=== PATIENT | male | born 1950 | race African-American/Black ===

== ENCOUNTER 2019-11-30 12:41 | Inpatient (IN) | payer MEDICARE, MEDICAID ==
[~2019-11-30] VITALS: Ht 177.8 cm; Wt 60.8 kg
[~2019-11-30 12:41] MED LIST: CARI250T PO; ENAL10TA71 PO; HYDR-3280 PO; METH10OR11 PO
[2019-11-30] MEDS ORDERED: SODIUM CHLORIDE 0.9% 1,000 ML IV ONE (13:42)
[2019-11-30 14:16] LABS: BASOPHILS % 0.3 % (0.0-2.0); EOSINOPHILS % 0.4 % (0.0-5.0); HEMOGLOBIN. 9.6 g/dL (14.0-18.0); LYMPHOCYTES % 18.7 % (20.0-50.0); MEAN CORPUSCULAR HEMOGLOBIN 30.8 pg (28.0-32.0); MEAN CORPUSCULAR VOLUME 93.1 fL (80.0-94.0); MEAN PLATELET VOLUME 8.3 fl (7.4-10.4); MONOCYTES % 7.4 % (2.0-8.0); NEUTROPHILS % 73.2 % (40.0-76.0); PLATELET 269 x1000/uL (130-400); RED BLOOD CELL COUNT 3.11 mill/uL (4.7-6.1)
[2019-11-30 14:22] LABS: CHLORIDE 105 mEq/L (98-107)
[2019-11-30 14:26] LABS: ETHANOL BLOOD < 10 mg/dL
[2019-11-30 14:30] LABS: CLARITY URINE CLEAR (CLEAR); COLOR URINE DARK YELLOW (YELLOW); KETONES URINE TRACE (NEGATIVE); LEUKOCYTE ESTERASE URINE NEGATIVE (NEGATIVE); NITRITE URINE NEGATIVE (NEGATIVE); OCCULT BLOOD URINE NEGATIVE (NEGATIVE); PH URINE 5.5 (4.5-8.0); PROTEIN URINE 1+ (NEGATIVE); SPECIFIC GRAVITY URINE 1.031 (1.005-1.030)
[2019-11-30] MEDS ORDERED: LORAZEPAM 2MG/ML CPJ IV ONE ×2 (14:30→14:45)
[2019-11-30 14:31] LABS: INR 1.1; PARTIAL THROMBOPLASTIN TIME 35.7 sec (23.4-31.0); PROTHROMBIN TIME 11.2 sec (9.6-11.0)
[2019-11-30] MEDS ORDERED: HALOPERIDOL LACTATE 5MG/ML VIAL IM ONE (14:45)
[2019-11-30 14:46] LABS: *AMPHETAMINES SCREEN URINE NEGATIVE (NEGATIVE); *BARBITURATES SCREEN URINE NEGATIVE (NEGATIVE)
[2019-11-30 14:47] LABS: *BENZODIAZEPINES SCREEN URINE NEGATIVE (NEGATIVE); *COCAINE SCREEN URINE NEGATIVE (NEGATIVE); METHADONE URINE SCREEN PRESUMTIVE POSITIVE (NEGATIVE); OPIATES URINE SCREEN NEGATIVE (NEGATIVE); PHENCYCLIDINE URINE SCREEN NEGATIVE (NEGATIVE)
[2019-11-30 14:48] LABS: CANNABINOID URINE SCREEN PRESUMTIVE POSITIVE (NEGATIVE)
[2019-11-30] MEDS ORDERED: ASPIRIN 300MG SUPP PR ONE (16:30)
[2019-11-30] MEDS ORDERED: DOCUSATE SODIUM 100MG CAPSULE PO PRN (17:00)
[2019-11-30] MEDS ORDERED: ACETAMINOPHEN 650MG/20.3ML UDC GT PRN ×2 (17:00)
[2019-11-30] MEDS ORDERED: CLONIDINE 0.1MG TABLET PO PRN (17:00)
[2019-11-30] MEDS ORDERED: ACETAMINOPHEN 650MG SUPP PR PRN ×2 (17:00)
[2019-11-30] MEDS ORDERED: ACETAMINOPHEN 325MG TABLET PO PRN ×2 (17:00)
[2019-11-30] MEDS ORDERED: HYDRALAZINE 20MG/ML VIAL IV PRN (17:00)
[2019-11-30] MEDS ORDERED: GUAIFENESIN 200MG/10ML SUGAR FREE UDC PO PRN (17:00)
[2019-11-30] MEDS ORDERED: ONDANSETRON HCL 4MG/2ML INJ IV PRN (17:00)
[2019-11-30 17:42] VITALS: BP 124/77
[2019-11-30] MEDS: INSULIN LISPRO 100 UNITS/ML SUBCUT SCH ×2 (17:50→21:00)
[2019-11-30] MEDS: BLOOD SUGAR DIAGNOSTIC STRIP TEST SCH ×2 (17:53→21:00)
[2019-11-30 18:00] VITALS: BP 124/77
[2019-11-30] MEDS: DEXTROSE 50% WATER 50ML SYRINGE IV PRN ×2 (18:01→22:17)
[2019-11-30] MEDS: ENOXAPARIN 40MG/0.4ML SYR SUBCUT SCH (18:02)
[2019-11-30 20:00] VITALS: BP 164/83
[2019-12-01] VITALS: BP 135/66
[2019-12-01] MEDS: LORAZEPAM 2MG/ML CPJ IV PRN ×3 (00:29→14:53)
[2019-12-01 04:00] VITALS: BP 116/80
[2019-12-01] MEDS: BLOOD SUGAR DIAGNOSTIC STRIP TEST SCH ×4 (06:38→21:18)
[2019-12-01 06:42] LABS: BASOPHILS % 0.2 % (0.0-2.0); EOSINOPHILS % 0.1 % (0.0-5.0); HEMATOCRIT. 33.4 % (42.0-52.0); HEMOGLOBIN. 11.2 g/dL (14.0-18.0); LYMPHOCYTES % 12.9 % (20.0-50.0); MEAN CORPUSCULAR HEMOGLOBIN 31.4 pg (28.0-32.0); MEAN CORPUSCULAR VOLUME 93.7 fL (80.0-94.0); MEAN PLATELET VOLUME 8.7 fl (7.4-10.4); NEUTROPHILS % 79.8 % (40.0-76.0); PLATELET 269 x1000/uL (130-400); RED BLOOD CELL COUNT 3.56 mill/uL (4.7-6.1)
[2019-12-01 06:47] LABS: CHLORIDE 101 mEq/L (98-107)
[2019-12-01 06:58] LABS: LDL CHOLESTEROL 79 mg/dL (5-100)
[2019-12-01 06:59] LABS: HDL CHOLESTEROL 46 mg/dL (40-59)
[2019-12-01] MEDS: INSULIN LISPRO 100 UNITS/ML SUBCUT SCH ×4 (07:25→21:00)
[2019-12-01 11:50] VITALS: BP 160/91
[2019-12-01] MEDS ORDERED: HYDROCODONE/ACETAMINOPHEN 5/325MG TABLET PO SCH (14:00)
[2019-12-01] MEDS ORDERED: METHADONE HCL 10MG TABLET PO NR (15:15)
[2019-12-01 16:00] VITALS: BP 149/88
[2019-12-01] MEDS: ENOXAPARIN 40MG/0.4ML SYR SUBCUT SCH (18:01)
[2019-12-01 20:00] VITALS: BP 140/97
[2019-12-02] VITALS: BP 129/81
[2019-12-02 04:00] VITALS: BP 138/85
[2019-12-02] MEDS: LORAZEPAM 2MG/ML CPJ IV PRN (04:57)
[2019-12-02] MEDS: INSULIN LISPRO 100 UNITS/ML SUBCUT SCH ×4 (06:56→20:40)
[2019-12-02] MEDS: BLOOD SUGAR DIAGNOSTIC STRIP TEST SCH ×4 (06:56→20:40)
[2019-12-02 08:00] VITALS: BP 141/78
[2019-12-02] MEDS ORDERED: METHADONE HCL 10MG TABLET PO SCH (09:00)
[2019-12-02 09:30] LABS: VITAMIN B12 SERUM 540 pg/mL (211-911)
[2019-12-02 12:00] VITALS: BP 115/62
[2019-12-02 16:00] VITALS: BP 145/75
[2019-12-02] MEDS: ENOXAPARIN 40MG/0.4ML SYR SUBCUT SCH (17:55)
[2019-12-02 20:00] VITALS: BP 154/82
[2019-12-03] VITALS (7 sets, daily range): BP systolic 111–133; BP diastolic 61–88
[2019-12-03] MEDS: LORAZEPAM 2MG/ML CPJ IV PRN ×2 (01:30→14:43)
[2019-12-03] MEDS: BLOOD SUGAR DIAGNOSTIC STRIP TEST SCH ×4 (06:46→21:20)
[2019-12-03] MEDS: INSULIN LISPRO 100 UNITS/ML SUBCUT SCH ×4 (07:40→21:00)
[2019-12-03] MEDS ORDERED: SODIUM BICARBONATE 4% (2.4MEQ) 5ML VIAL IV ONE ×2 (12:40→14:43)
[2019-12-03] MEDS ORDERED: LIDOCAINE HCL 1% 20ML VIAL (Pyxis) INJ ONE ×2 (12:40→14:43)
[2019-12-03 13:26] LABS: BASOPHILS % 0.5 % (0.0-2.0); HEMOGLOBIN. 10.2 g/dL (14.0-18.0); LYMPHOCYTES % 10.6 % (20.0-50.0); MEAN CORPUSCULAR HEMOGLOBIN 30.7 pg (28.0-32.0); MEAN CORPUSCULAR VOLUME 93.5 fL (80.0-94.0); MONOCYTES % 7.5 % (2.0-8.0); NEUTROPHILS % 81.4 % (40.0-76.0); PLATELET 218 x1000/uL (130-400); RED BLOOD CELL COUNT 3.32 mill/uL (4.7-6.1); RED CELL DISTRIBUTION WIDTH 14.2 % (11.6-14.6)
[2019-12-03 13:28] LABS: CHLORIDE 104 mEq/L (98-107)
[2019-12-03] MEDS ORDERED: MORPHINE SULFATE 2 MG/ML CPJ (NOT FOR IM USE) IV ONE ×2 (14:00→14:30)
[2019-12-03] MEDS ORDERED: LORAZEPAM 2MG/ML CPJ IV PRN ×2 (14:15→20:00)
[2019-12-03] MEDS ORDERED: MORPHINE SULFATE 2 MG/ML CPJ (NOT FOR IM USE) IV NR (14:15)
[2019-12-03] MEDS ORDERED: LORAZEPAM 2MG/ML CPJ IM PRN (14:15)
[2019-12-03] MEDS: METHADONE HCL 10MG TABLET PO SCH (16:36)
[2019-12-03] MEDS: ENOXAPARIN 40MG/0.4ML SYR SUBCUT SCH (16:38)
[2019-12-03] MEDS ORDERED: PHENYTOIN SODIUM EXTENDED 100MG CAPSULE PO SCH (22:00)
[2019-12-04 04:00] VITALS: BP 146/85
[2019-12-04] MEDS: BLOOD SUGAR DIAGNOSTIC STRIP TEST SCH ×4 (06:30→20:47)
[2019-12-04] MEDS: INSULIN LISPRO 100 UNITS/ML SUBCUT SCH ×4 (07:50→20:48)
[2019-12-04 08:00] VITALS: BP 129/80
[2019-12-04] MEDS ORDERED: METHADONE HCL 10MG TABLET PO SCH ×2 (09:00)
[2019-12-04] MEDS: METHADONE HCL 10MG TABLET PO SCH (09:04)
[2019-12-04 12:00] VITALS: BP 148/90
[2019-12-04 16:00] VITALS: BP 135/82
[2019-12-04] MEDS: ENOXAPARIN 40MG/0.4ML SYR SUBCUT SCH (17:49)
[2019-12-04 20:52] VITALS: BP 170/94
[2019-12-04 21:10] VITALS: BP 156/85
[2019-12-05 00:42] VITALS: BP 149/90
[2019-12-05] MEDS: LORAZEPAM 2MG/ML CPJ IV PRN (01:01)
[2019-12-05 04:00] VITALS: BP 137/74
[2019-12-05 05:12] VITALS: BP 137/74
[2019-12-05] MEDS: BLOOD SUGAR DIAGNOSTIC STRIP TEST SCH ×4 (06:27→20:59)
[2019-12-05 06:28] LABS: CHLORIDE 105 mEq/L (98-107)
[2019-12-05 06:31] LABS: BASOPHILS % 0.2 % (0.0-2.0); HEMATOCRIT. 33.2 % (42.0-52.0); MEAN CORPUSCULAR HEMOGLOBIN 31.1 pg (28.0-32.0); MEAN CORPUSCULAR VOLUME 94.2 fL (80.0-94.0); MONOCYTES % 8.6 % (2.0-8.0); NEUTROPHILS % 80.2 % (40.0-76.0); PLATELET 213 x1000/uL (130-400); RED BLOOD CELL COUNT 3.53 mill/uL (4.7-6.1)
[2019-12-05] MEDS: INSULIN LISPRO 100 UNITS/ML SUBCUT SCH ×4 (07:13→20:59)
[2019-12-05 08:18] VITALS: BP 138/82
[2019-12-05] MEDS ORDERED: IODIXANOL 320MG/ML 100 ML BOTTLE IV ONE (10:27)
[2019-12-05] MEDS ORDERED: LIDOCAINE HCL 1% 20ML VIAL (Pyxis) INJ ONE (10:27)
[2019-12-05] MEDS ORDERED: MIDAZOLAM HCL 5 MG/5 ML VIAL ONE (11:46)
[2019-12-05] MEDS ORDERED: PROPOFOL 10MG/ML 100ML 100 ML IV ONE (11:51)
[2019-12-05] MEDS ORDERED: CEFAZOLIN SODIUM 1000MG/VIAL ONE (12:11)
[2019-12-05] MEDS ORDERED: HEPARIN 1000 UNITS/ML 10ML ONE (12:37)
[2019-12-05] MEDS ORDERED: ONDANSETRON HCL 4MG/2ML INJ IV PRN (12:45)
[2019-12-05] MEDS ORDERED: HYDROMORPHONE HCL/PF 2MG/ML CPJ IV PRN (12:45)
[2019-12-05] MEDS ORDERED: SODIUM CHLORIDE 0.9% 1,000 ML IV ONE (13:00)
[2019-12-05] MEDS: METHADONE HCL 10MG TABLET PO SCH (15:26)
[2019-12-05 16:30] VITALS: BP 162/88
[2019-12-05] MEDS: ENOXAPARIN 40MG/0.4ML SYR SUBCUT SCH (17:41)
[2019-12-05 20:00] VITALS: BP 146/82
[2019-12-06] VITALS (7 sets, daily range): BP systolic 128–153; BP diastolic 71–86
[2019-12-06] MEDS: INSULIN LISPRO 100 UNITS/ML SUBCUT SCH ×4 (07:32→20:43)
[2019-12-06] MEDS: BLOOD SUGAR DIAGNOSTIC STRIP TEST SCH ×4 (07:32→20:43)
[2019-12-06] MEDS: METHADONE HCL 10MG TABLET PO SCH (09:00)
[2019-12-06 14:53] LABS: BASOPHILS % 0.4 % (0.0-2.0); HEMATOCRIT. 31.5 % (42.0-52.0); HEMOGLOBIN. 10.4 g/dL (14.0-18.0); LYMPHOCYTES % 10.5 % (20.0-50.0); MEAN CORPUSCULAR HEMOGLOBIN 30.8 pg (28.0-32.0); MEAN CORPUSCULAR VOLUME 93.6 fL (80.0-94.0); MEAN PLATELET VOLUME 9.7 fl (7.4-10.4); MONOCYTES % 7.1 % (2.0-8.0); PLATELET 205 x1000/uL (130-400); RED BLOOD CELL COUNT 3.37 mill/uL (4.7-6.1); RED CELL DISTRIBUTION WIDTH 13.9 % (11.6-14.6)
[2019-12-06 14:58] LABS: CHLORIDE 107 mEq/L (98-107)
[2019-12-06 15:00] LABS: INR 1.1; PROTHROMBIN TIME 11.5 sec (9.6-11.0)
[2019-12-06] MEDS: ENOXAPARIN 40MG/0.4ML SYR SUBCUT SCH (17:35)
[2019-12-07] VITALS: BP 157/76
[2019-12-07] MEDS: LORAZEPAM 2MG/ML CPJ IV PRN ×2 (01:00→09:16)
[2019-12-07 04:00] VITALS: BP 128/72
[2019-12-07] MEDS: BLOOD SUGAR DIAGNOSTIC STRIP TEST SCH ×3 (06:32→17:52)
[2019-12-07] MEDS: INSULIN LISPRO 100 UNITS/ML SUBCUT SCH ×3 (07:27→17:50)
[2019-12-07 08:27] VITALS: BP 111/92
[2019-12-07] MEDS: METHADONE HCL 10MG TABLET PO SCH (09:18)
[2019-12-07 12:00] VITALS: BP 154/80
[2019-12-07 14:00] VITALS: BP 154/80
[2019-12-07 16:37] VITALS: BP 142/78
[2019-12-07] MEDS: ENOXAPARIN 40MG/0.4ML SYR SUBCUT SCH (17:30)
== END 2019-12-07 18:00 | DRG 299 ==
LOC: ER 13:41 → EDBEDREQTM 15:12 → 6WST 15:31 → EDBEDREQTM 15:33 → EDBEDREQ 15:33 → ENRESERV 16:30
PROVIDERS: ADMIT Family Medicine; ATTEND Family Medicine
PROC: B54MZZA Ultrasonography of Right Upper Extremity Veins, Guidance (ICD-10-PCS; 2019-12-04)
PROC: B41GYZZ Fluoroscopy of Left Lower Extremity Arteries using Other Contrast (ICD-10-PCS; principal; 2019-12-05)
DX: I70.202 Unspecified atherosclerosis of native arteries of extremities, left leg (principal); G93.41 Metabolic encephalopathy; L97.329 Non-pressure chronic ulcer of left ankle with unspecified severity; E44.0 Moderate protein-calorie malnutrition; Z68.1 Body mass index [BMI] 19.9 or less, adult; I77.1 Stricture of artery; Z86.73 Personal history of transient ischemic attack (TIA), and cerebral infarction without residual deficits; G40.909 Epilepsy, unspecified, not intractable, without status epilepticus; F11.90 Opioid use, unspecified, uncomplicated; I10 Essential (primary) hypertension; J44.9 Chronic obstructive pulmonary disease, unspecified; R62.7 Adult failure to thrive; D64.9 Anemia, unspecified; E11.51 Type 2 diabetes mellitus with diabetic peripheral angiopathy without gangrene; L85.3 Xerosis cutis; E11.621 Type 2 diabetes mellitus with foot ulcer; L97.529 Non-pressure chronic ulcer of other part of left foot with unspecified severity; F17.210 Nicotine dependence, cigarettes, uncomplicated; S90.912A Unspecified superficial injury of left ankle, initial encounter; X58.XXXA Exposure to other specified factors, initial encounter; Y93.89 Activity, other specified; Y92.89 Other specified places as the place of occurrence of the external cause; Y99.8 Other external cause status
CPT/HCPCS: 36246; 36415; 71045; 75710; 76937; 80053; 80061; 80305; 80320; 81003; 82607; 82962; 83036; 83880; 84443; 84484; 85025; 87635; 93005; 93923; 99285; C1760; C1769; C1893; C1894; J0690; J1630; J1644; J1650; J2060; J2250; J2704; J3490; J7030; Q9967; G0480

== ENCOUNTER 2019-12-16 11:13 | Inpatient (IN) | payer MEDICARE, MEDICAID ==
[~2019-12-16] VITALS: Ht 180.3 cm; Wt 49.9 kg
[~2019-12-16 11:13] MED LIST changes: -HYDR-3280 PO
[2019-12-16] MEDS ORDERED: ACETAMINOPHEN 325MG TABLET PO STA (12:08)
[2019-12-16] MEDS ORDERED: PIPERACILLIN/TAZ 3.375G PREMIX 50 ML IV ONE (12:15)
[2019-12-16] MEDS ORDERED: VANCOMYCIN 1 G PREMIX 200 ML IV ONE (12:15)
[2019-12-16] MEDS ORDERED: LORAZEPAM 2MG/ML CPJ IV ONE ×2 (12:45→18:15)
[2019-12-16 13:21] LABS: HEMOGLOBIN. 9.8 g/dL (14.0-18.0); MEAN CORPUSCULAR HEMOGLOBIN 30.4 pg (28.0-32.0); MEAN CORPUSCULAR VOLUME 92.7 fL (80.0-94.0); MEAN PLATELET VOLUME 9.1 fl (7.4-10.4); PLATELET 348 x1000/uL (130-400); RED BLOOD CELL COUNT 3.23 mill/uL (4.7-6.1); RED CELL DISTRIBUTION WIDTH 14.2 % (11.6-14.6)
[2019-12-16 13:28] LABS: CLARITY URINE CLEAR (CLEAR); COLOR URINE DARK YELLOW (YELLOW); KETONES URINE NEGATIVE (NEGATIVE); LEUKOCYTE ESTERASE URINE TRACE (NEGATIVE); NITRITE URINE NEGATIVE (NEGATIVE); OCCULT BLOOD URINE NEGATIVE (NEGATIVE); PH URINE 5.5 (4.5-8.0); PROTEIN URINE 1+ (NEGATIVE)
[2019-12-16 13:32] LABS: INR 1.1; PROTHROMBIN TIME 11.2 sec (9.6-11.0)
[2019-12-16 13:33] LABS: CHLORIDE 104 mEq/L (98-107)
[2019-12-16 13:55] LABS: PLATELET ESTIMATE NORMAL
[2019-12-16] MEDS: ENOXAPARIN 40MG/0.4ML SYR SUBCUT SCH (18:00)
[2019-12-16] MEDS ORDERED: NA PHOS,M-B/NA PHOS,DI-BA ENEMA 118ML PR PRN (18:15)
[2019-12-16] MEDS ORDERED: METHADONE HCL PO SCH (18:15)
[2019-12-16] MEDS ORDERED: ONDANSETRON HCL 4MG/2ML INJ IV PRN (18:15)
[2019-12-16] MEDS ORDERED: MAGNESIUM/ALUMINUM HYDROXIDE/SIMETHICONE 30ML UDC PO PRN (18:15)
[2019-12-16] MEDS ORDERED: CLONIDINE 0.1MG TABLET PO PRN (18:15)
[2019-12-16] MEDS ORDERED: DIPHENHYDRAMINE 50MG/ML VIAL IV PRN (18:15)
[2019-12-16] MEDS ORDERED: PIPERACILLIN/TAZ 3.375G PREMIX 50 ML IV SCH (18:30)
[2019-12-16 20:35] VITALS: BP 152/86
[2019-12-16] MEDS ORDERED: PIPERACILLIN/TAZOBACTAM 3.375 G/VIAL IV SCH (22:00)
[2019-12-16] MEDS: LORAZEPAM 2MG/ML CPJ IV PRN (22:22)
[2019-12-16] MEDS ORDERED: DOCU-150 MT (23:34)
[2019-12-16] MEDS ORDERED: MULT-1146 MT (23:35)
[2019-12-17] MEDS: HYDROCODONE/ACETAMINOPHEN 10/325MG TABLET PO PRN ×2 (00:26→23:42)
[2019-12-17] MEDS: PIPERACILLIN/TAZOBACTAM 3.375 G in DEXT 5% WATER 100 ML IV SCH ×3 (01:55→17:47)
[2019-12-17 03:31] VITALS: BP 148/80
[2019-12-17 04:00] VITALS: BP 148/91
[2019-12-17 08:00] VITALS: BP 152/86
[2019-12-17 08:56] LABS: CHLORIDE 107 mEq/L (98-107)
[2019-12-17 09:04] LABS: HEMATOCRIT. 31.4 % (42.0-52.0); HEMOGLOBIN. 10.4 g/dL (14.0-18.0); LDL CHOLESTEROL 46 mg/dL (5-100); MEAN CORPUSCULAR HEMOGLOBIN 30.8 pg (28.0-32.0); MEAN CORPUSCULAR VOLUME 92.7 fL (80.0-94.0); RED BLOOD CELL COUNT 3.38 mill/uL (4.7-6.1); RED CELL DISTRIBUTION WIDTH 14.3 % (11.6-14.6)
[2019-12-17 09:05] LABS: HDL CHOLESTEROL 24 mg/dL (40-59)
[2019-12-17] MEDS ORDERED: DEXTROSE 50% WATER 50ML SYRINGE IV PRN (10:00)
[2019-12-17 10:27] LABS: PLATELET 322 x1000/uL (130-400)
[2019-12-17 10:29] LABS: PLATELET ESTIMATE NORMAL
[2019-12-17] MEDS: METHADONE HCL 10MG TABLET PO SCH (11:00)
[2019-12-17] MEDS ORDERED: BACITRACIN 15GM TUBE TOP ONE (11:44)
[2019-12-17] MEDS ORDERED: HEPARIN 100 UNITS/1 ML VIAL ONE (11:44)
[2019-12-17] MEDS ORDERED: LIDOCAINE HCL 1% 20ML VIAL (Pyxis) INJ ONE (11:44)
[2019-12-17] MEDS ORDERED: THROMBIN (BOVINE) 5000 UNITS/VIAL TOP ONE (11:45)
[2019-12-17] MEDS ORDERED: BUPIVACAINE HCL/PF 0.5% (5MG/ML) 10ML ONE ×2 (11:45→11:46)
[2019-12-17] MEDS ORDERED: HEPARIN SODIUM 1,000 UNIT/1ML VIAL IV ONE ×2 (11:45→11:47)
[2019-12-17] MEDS ORDERED: BACITRACIN 50,000 UNITS/VIAL ONE (11:46)
[2019-12-17] MEDS: INSULIN LISPRO 100 UNITS/ML SUBCUT SCH ×3 (11:47→21:00)
[2019-12-17] MEDS: BLOOD SUGAR DIAGNOSTIC STRIP TEST SCH ×3 (11:47→21:00)
[2019-12-17] MEDS ORDERED: ONDANSETRON HCL 4MG/2ML INJ IV PRN (14:30)
[2019-12-17] MEDS ORDERED: MEPERIDINE HCL/PF 25MG/ML CPJ IV PRN (14:30)
[2019-12-17] MEDS ORDERED: ACETAMINOPHEN 650MG SUPP PR PRN (14:45)
[2019-12-17] MEDS ORDERED: MET5 PO (14:53)
[2019-12-17] MEDS: SODIUM HYPOCHLORITE (0.25%) 480ML SOLUTION (HALF STRENGTH) TOP SCH (15:00)
[2019-12-17] MEDS: LORAZEPAM 2MG/ML CPJ IV PRN ×2 (15:44→23:42)
[2019-12-17 16:00] VITALS: BP 159/90
[2019-12-17] MEDS: ENOXAPARIN 40MG/0.4ML SYR SUBCUT SCH (17:47)
[2019-12-17 20:00] VITALS: BP 158/80
[2019-12-18] VITALS: BP 139/81
[2019-12-18] MEDS: PIPERACILLIN/TAZOBACTAM 3.375 G in DEXT 5% WATER 100 ML IV SCH ×3 (02:54→17:07)
[2019-12-18] MEDS: LORAZEPAM 2MG/ML CPJ IV PRN ×3 (03:50→23:44)
[2019-12-18 04:00] VITALS: BP 123/67
[2019-12-18] MEDS: HYDROCODONE/ACETAMINOPHEN 10/325MG TABLET PO PRN ×4 (06:21→23:45)
[2019-12-18] MEDS: INSULIN LISPRO 100 UNITS/ML SUBCUT SCH ×4 (07:36→21:00)
[2019-12-18] MEDS: BLOOD SUGAR DIAGNOSTIC STRIP TEST SCH ×4 (07:36→21:00)
[2019-12-18 08:00] VITALS: BP 138/75
[2019-12-18] MEDS: SODIUM HYPOCHLORITE (0.25%) 480ML SOLUTION (HALF STRENGTH) TOP SCH (09:00)
[2019-12-18] MEDS: METHADONE HCL 10MG TABLET PO SCH (09:19)
[2019-12-18 12:00] VITALS: BP 126/85
[2019-12-18 16:00] VITALS: BP 117/78
[2019-12-18 16:40] LABS: BASOPHILS % 0.1 % (0.0-2.0); HEMATOCRIT. 26.6 % (42.0-52.0); HEMOGLOBIN. 8.9 g/dL (14.0-18.0); LYMPHOCYTES % 14.5 % (20.0-50.0); MEAN CORPUSCULAR HEMOGLOBIN 30.7 pg (28.0-32.0); MEAN PLATELET VOLUME 9.2 fl (7.4-10.4); MONOCYTES % 6.8 % (2.0-8.0); NEUTROPHILS % 78.6 % (40.0-76.0); PLATELET 315 x1000/uL (130-400); RED BLOOD CELL COUNT 2.89 mill/uL (4.7-6.1); RED CELL DISTRIBUTION WIDTH 14.4 % (11.6-14.6)
[2019-12-18 16:52] LABS: CHLORIDE 108 mEq/L (98-107)
[2019-12-18] MEDS: ENOXAPARIN 30MG/0.3ML SYR SUBCUT SCH (17:07)
[2019-12-18 20:00] VITALS: BP 93/66
[2019-12-19] VITALS: BP 118/67
[2019-12-19] MEDS: PIPERACILLIN/TAZOBACTAM 3.375 G in DEXT 5% WATER 100 ML IV SCH ×3 (01:24→17:54)
[2019-12-19 04:00] VITALS: BP 123/73
[2019-12-19] MEDS: LORAZEPAM 2MG/ML CPJ IV PRN (06:09)
[2019-12-19] MEDS: HYDROCODONE/ACETAMINOPHEN 10/325MG TABLET PO PRN ×2 (06:09→16:14)
[2019-12-19] MEDS: BLOOD SUGAR DIAGNOSTIC STRIP TEST SCH ×4 (07:20→21:00)
[2019-12-19] MEDS: INSULIN LISPRO 100 UNITS/ML SUBCUT SCH ×4 (07:50→21:00)
[2019-12-19 08:00] VITALS: BP 130/76
[2019-12-19] MEDS: METHADONE HCL 10MG TABLET PO SCH (09:32)
[2019-12-19] MEDS: SODIUM HYPOCHLORITE (0.25%) 480ML SOLUTION (HALF STRENGTH) TOP SCH (10:18)
[2019-12-19 12:00] VITALS: BP 107/68
[2019-12-19] MEDS ORDERED: HYDR-3281 MT (13:13)
[2019-12-19 16:00] VITALS: BP 128/79
[2019-12-19 16:45] LABS: CHLORIDE 106 mEq/L (98-107)
[2019-12-19 16:47] LABS: BASOPHILS % 0.1 % (0.0-2.0); EOSINOPHILS % 0.3 % (0.0-5.0); HEMATOCRIT. 26.7 % (42.0-52.0); HEMOGLOBIN. 8.9 g/dL (14.0-18.0); LYMPHOCYTES % 27.1 % (20.0-50.0); MEAN CORPUSCULAR HEMOGLOBIN 30.8 pg (28.0-32.0); MEAN CORPUSCULAR VOLUME 92.4 fL (80.0-94.0); MONOCYTES % 9.9 % (2.0-8.0); NEUTROPHILS % 62.6 % (40.0-76.0); PLATELET 278 x1000/uL (130-400); RED BLOOD CELL COUNT 2.89 mill/uL (4.7-6.1); RED CELL DISTRIBUTION WIDTH 14.2 % (11.6-14.6)
[2019-12-19] MEDS: ENOXAPARIN 30MG/0.3ML SYR SUBCUT SCH (17:54)
[2019-12-19 20:00] VITALS: BP 113/75
[2019-12-20] VITALS: BP 111/78
[2019-12-20] MEDS: LORAZEPAM 2MG/ML CPJ IV PRN ×2 (01:23→12:19)
[2019-12-20] MEDS: PIPERACILLIN/TAZOBACTAM 3.375 G in DEXT 5% WATER 100 ML IV SCH ×2 (02:32→09:18)
[2019-12-20 04:00] VITALS: BP 132/90
[2019-12-20] MEDS: BLOOD SUGAR DIAGNOSTIC STRIP TEST SCH ×2 (07:09→11:52)
[2019-12-20] MEDS: INSULIN LISPRO 100 UNITS/ML SUBCUT SCH ×2 (07:19→11:52)
[2019-12-20 08:00] VITALS: BP 112/70
[2019-12-20] MEDS: SODIUM HYPOCHLORITE (0.25%) 480ML SOLUTION (HALF STRENGTH) TOP SCH (09:16)
[2019-12-20] MEDS: METHADONE HCL 10MG TABLET PO SCH (09:17)
[2019-12-20 12:00] VITALS: BP 139/74
[2019-12-20] MEDS ORDERED: LOV30 SUBCUT (12:08)
[2019-12-20 16:00] VITALS: BP 117/70
[2019-12-20 16:28] VITALS: BP 117/70
== END 2019-12-20 16:55 | DRG 239 ==
LOC: ER 11:13 → 6EST 15:07 → EDBEDREQ 15:34 → EDBEDREQSVC 15:34 → ENRESERV 19:32
PROVIDERS: ADMIT Family Medicine; ATTEND Family Medicine
PROC: 0Y6D0Z2 Detachment at Left Upper Leg, Mid, Open Approach (ICD-10-PCS; principal; 2019-12-17)
DX: I70.262 Atherosclerosis of native arteries of extremities with gangrene, left leg (principal); G93.41 Metabolic encephalopathy; E44.0 Moderate protein-calorie malnutrition; Z68.1 Body mass index [BMI] 19.9 or less, adult; E11.52 Type 2 diabetes mellitus with diabetic peripheral angiopathy with gangrene; F03.90 Unspecified dementia, unspecified severity, without behavioral disturbance, psychotic disturbance, mood disturbance, and anxiety; G40.909 Epilepsy, unspecified, not intractable, without status epilepticus; D64.9 Anemia, unspecified; J44.9 Chronic obstructive pulmonary disease, unspecified; I10 Essential (primary) hypertension; I77.1 Stricture of artery; F11.90 Opioid use, unspecified, uncomplicated; F17.200 Nicotine dependence, unspecified, uncomplicated; L85.3 Xerosis cutis; L08.9 Local infection of the skin and subcutaneous tissue, unspecified; E11.621 Type 2 diabetes mellitus with foot ulcer; L97.529 Non-pressure chronic ulcer of other part of left foot with unspecified severity; Z86.73 Personal history of transient ischemic attack (TIA), and cerebral infarction without residual deficits; Z74.01 Bed confinement status
CPT/HCPCS: 36415; 71045; 80053; 80061; 81003; 82962; 83036; 83605; 84145; 85025; 88307; 88311; 93005; 96365; 99285; J1200; J1642; J1644; J1650; J2060; J2175; J2405; J2543; J3370; J3490; J7060

== ENCOUNTER 2021-11-29 13:37 | Inpatient (IN) | payer MEDICARE, MEDICAID ==
[~2021-11-29] VITALS: Ht 185.4 cm; Wt 59.0 kg
[~2021-11-29 13:37] MED LIST changes: +DOCU-150 MT; +HYDR-4346 MT; +LOV30 SUBCUT; +METH-817 PO; -METH10OR11 PO; +MULT-1146 MT
[2021-11-29 17:10] LABS: HEMATOCRIT. 40.2 % (42.0-52.0); HEMOGLOBIN. 13.1 g/dL (14.0-18.0); MEAN CORPUSCULAR HEMOGLOBIN 30.4 pg (28.0-32.0); MEAN CORPUSCULAR VOLUME 93.4 fL (80.0-94.0); MEAN PLATELET VOLUME 10.8 fl (7.4-10.4); PLATELET 135 x1000/uL (130-400); RED CELL DISTRIBUTION WIDTH 14.1 % (11.6-14.6)
[2021-11-29 17:41] LABS: CHLORIDE 107 mEq/L (98-107)
[2021-11-29 17:47] LABS: PLATELET ESTIMATE NORMAL
[2021-11-29 17:56] LABS: ETHANOL BLOOD < 10 mg/dL
[2021-11-29] MEDS ORDERED: LEVOFLOXACIN 750MG PREMIX 150 ML IV ONE (18:30)
[2021-11-30 09:00] VITALS: BP 132/72
[2021-11-30 10:00] VITALS: BP 132/72
[2021-11-30] MEDS ORDERED: METHADONE HCL 10MG TABLET PO SCH (10:00)
[2021-11-30 12:00] VITALS: BP 141/85
[2021-11-30] MEDS ORDERED: DEXTROSE 50% WATER 50ML SYRINGE IV PRN (12:00)
[2021-11-30] MEDS ORDERED: CEFTRIAXONE 1 G PREMIX 50 ML IV SCH (12:00)
[2021-11-30] MEDS: INSULIN LISPRO 100 UNITS/ML SUBCUT SCH ×3 (12:50→23:30)
[2021-11-30] MEDS: BLOOD SUGAR DIAGNOSTIC STRIP TEST SCH ×3 (12:53→21:00)
[2021-11-30] MEDS: ENOXAPARIN 40MG/0.4ML SYR SUBCUT SCH (13:02)
[2021-11-30] MEDS: NICOTINE 21MG PATCH TD SCH (13:02)
[2021-11-30] MEDS ORDERED: NALOXONE HCL 0.4MG/ML VIAL IV PRN (15:00)
[2021-11-30] MEDS ORDERED: HYDROCODONE/ACETAMINOPHEN 5/325MG TABLET PO PRN (15:00)
[2021-11-30] MEDS: CEFTRIAXONE 2 G in DEXTROSE 5% WATER 50 ML IV SCH (15:08)
[2021-11-30 16:00] VITALS: BP 112/96
[2021-11-30 16:47] LABS: BASOPHILS % 0.3 % (0.0-2.0); EOSINOPHILS % 1.1 % (0.0-5.0); HEMATOCRIT. 35.5 % (42.0-52.0); HEMOGLOBIN. 11.6 g/dL (14.0-18.0); LYMPHOCYTES % 34.8 % (20.0-50.0); MEAN CORPUSCULAR HEMOGLOBIN 30.2 pg (28.0-32.0); MEAN CORPUSCULAR VOLUME 92.5 fL (80.0-94.0); MONOCYTES % 10.4 % (2.0-8.0); NEUTROPHILS % 53.4 % (40.0-76.0); PLATELET 146 x1000/uL (130-400); RED BLOOD CELL COUNT 3.84 mill/uL (4.7-6.1)
[2021-11-30] MEDS: IPRATROPIUM/ALBUTEROL 0.5-3(2.5)MG/3ML NEB HHN SCH (17:04)
[2021-11-30] MEDS: BUDESONIDE 0.5MG/2ML NEB HHN SCH (17:04)
[2021-11-30 17:07] LABS: CHLORIDE 108 mEq/L (98-107)
[2021-11-30 20:00] VITALS: BP 154/85
[2021-11-30] MEDS ORDERED: GABA-532 PO (20:27)
[2021-11-30] MEDS ORDERED: METHADONE HCL 5MG TABLET PO SCH (21:00)
[2021-11-30] MEDS ORDERED: GABAPENTIN 300MG CAPSULE PO NR (21:00)
[2021-11-30] MEDS ORDERED: METHADONE HCL 10MG TABLET PO NR (21:15)
[2021-12-01] VITALS: BP 152/91
[2021-12-01 04:00] VITALS: BP 159/97
[2021-12-01] MEDS: INSULIN LISPRO 100 UNITS/ML SUBCUT SCH ×4 (07:57→21:00)
[2021-12-01] MEDS: BLOOD SUGAR DIAGNOSTIC STRIP TEST SCH ×4 (07:57→21:00)
[2021-12-01 08:00] VITALS: BP 167/102
[2021-12-01] MEDS: BUDESONIDE 0.5MG/2ML NEB HHN SCH ×2 (09:28→21:07)
[2021-12-01] MEDS: IPRATROPIUM/ALBUTEROL 0.5-3(2.5)MG/3ML NEB HHN SCH ×2 (09:31→21:07)
[2021-12-01] MEDS: NICOTINE 21MG PATCH TD SCH (10:09)
[2021-12-01 12:00] VITALS: BP 144/82
[2021-12-01] MEDS: ENOXAPARIN 40MG/0.4ML SYR SUBCUT SCH (13:13)
[2021-12-01] MEDS: GABAPENTIN 300MG CAPSULE PO SCH (13:13)
[2021-12-01] MEDS: CEFTRIAXONE 2 G in DEXTROSE 5% WATER 50 ML IV SCH (14:08)
[2021-12-01 20:00] VITALS: BP 151/81
[2021-12-02] VITALS: BP 162/70
[2021-12-02 04:00] VITALS: BP 167/80
[2021-12-02 07:08] LABS: HIV SCREEN 4G Non Reactive (Non Reactive)
[2021-12-02] MEDS: BLOOD SUGAR DIAGNOSTIC STRIP TEST SCH ×4 (07:20→21:11)
[2021-12-02] MEDS: IPRATROPIUM/ALBUTEROL 0.5-3(2.5)MG/3ML NEB HHN SCH ×2 (07:41→15:47)
[2021-12-02] MEDS: BUDESONIDE 0.5MG/2ML NEB HHN SCH ×2 (07:41→15:47)
[2021-12-02] MEDS: INSULIN LISPRO 100 UNITS/ML SUBCUT SCH ×4 (07:50→21:11)
[2021-12-02 08:00] VITALS: BP 184/115
[2021-12-02] MEDS: NICOTINE 21MG PATCH TD SCH (08:36)
[2021-12-02] MEDS: METHADONE HCL 10MG TABLET PO SCH (08:36)
[2021-12-02] MEDS ORDERED: ALBU6.7H9 INH (10:51)
[2021-12-02] MEDS ORDERED: METH-818 PO (10:51)
[2021-12-02] MEDS ORDERED: PULM25 NEB (10:51)
[2021-12-02] MEDS ORDERED: GABA-532 PO (10:51)
[2021-12-02] MEDS ORDERED: NICO-789 TD (10:51)
[2021-12-02] MEDS ORDERED: AZIT500T3 MT (11:17)
[2021-12-02 12:00] VITALS: BP 148/97
[2021-12-02] MEDS: ENOXAPARIN 30MG/0.3ML SYR SUBCUT SCH (13:20)
[2021-12-02] MEDS: GABAPENTIN 300MG CAPSULE PO SCH (13:20)
[2021-12-02] MEDS: CEFTRIAXONE 2 G in DEXTROSE 5% WATER 50 ML IV SCH (13:20)
[2021-12-02 16:00] VITALS: BP 157/95
[2021-12-02 20:00] VITALS: BP 149/87
[2021-12-03] VITALS (7 sets, daily range): BP systolic 128–172; BP diastolic 73–110
[2021-12-03] MEDS: INSULIN LISPRO 100 UNITS/ML SUBCUT SCH ×3 (07:50→17:39)
[2021-12-03] MEDS: BLOOD SUGAR DIAGNOSTIC STRIP TEST SCH ×3 (08:12→17:32)
[2021-12-03] MEDS: BUDESONIDE 0.5MG/2ML NEB HHN SCH ×2 (08:35→16:04)
[2021-12-03] MEDS: IPRATROPIUM/ALBUTEROL 0.5-3(2.5)MG/3ML NEB HHN SCH ×2 (08:35→16:06)
[2021-12-03] MEDS: METHADONE HCL 10MG TABLET PO SCH (08:50)
[2021-12-03] MEDS: NICOTINE 21MG PATCH TD SCH (08:50)
[2021-12-03] MEDS ORDERED: AMLODIPINE 10MG TABLET PO SCH (12:30)
[2021-12-03] MEDS: GABAPENTIN 300MG CAPSULE PO SCH (12:38)
[2021-12-03] MEDS: ENOXAPARIN 30MG/0.3ML SYR SUBCUT SCH (12:41)
[2021-12-03] MEDS: CEFTRIAXONE 2 G in DEXTROSE 5% WATER 50 ML IV SCH (13:51)
== END 2021-12-03 20:54 | disposition home health service (06) | DRG 193 ==
LOC: ER 14:20 → MICUSO 20:28 → 6EST 11-30 07:30
PROVIDERS: ADMIT Family Medicine; ATTEND Family Medicine
DX: J18.9 Pneumonia, unspecified organism (principal); E43 Unspecified severe protein-calorie malnutrition; J96.00 Acute respiratory failure, unspecified whether with hypoxia or hypercapnia; J44.1 Chronic obstructive pulmonary disease with (acute) exacerbation; J44.0 Chronic obstructive pulmonary disease with (acute) lower respiratory infection; Z68.1 Body mass index [BMI] 19.9 or less, adult; J20.9 Acute bronchitis, unspecified; E11.9 Type 2 diabetes mellitus without complications; G40.909 Epilepsy, unspecified, not intractable, without status epilepticus; D64.9 Anemia, unspecified; F17.210 Nicotine dependence, cigarettes, uncomplicated; Z79.891 Long term (current) use of opiate analgesic; Z79.899 Other long term (current) drug therapy; Z71.6 Tobacco abuse counseling; Z89.612 Acquired absence of left leg above knee
CPT/HCPCS: 36415; 71045; 80053; 80307; 80320; 80329; 82140; 82962; 83036; 84145; 84443; 85025; 87389; 93005; 94640; 97161; 97162; 97165; 97166; 97530; 99285; J0696; J1650; J1815; J1956; J7060; J7626; G0480